=== PATIENT | male | born 1970 | race Caucasian/White ===

== ENCOUNTER → 2021-11-25 | Outpatient (CLI) | payer BC ==
--- NOTE | 2021-11-25 14:03 | XR ---
EXAMINATION TYPE: XR chest 2V DATE OF EXAM: 11/25/2021 COMPARISON: NONE HISTORY: Cough since July TECHNIQUE: Frontal and lateral views of the chest are obtained. FINDINGS: There is no focal air space opacity, pleural effusion, or pneumothorax seen. The cardiac silhouette size is within normal limits. Mild elevation of right hemidiaphragm is noted. The osseous structures are intact, there is multilevel spondylosis. IMPRESSION: No acute cardiopulmonary process.
== END | disposition home or self-care (01) ==
LOC: RADXRMAIN 10:38
PROVIDERS: ATTEND Family Medicine
DX: R05.3 Chronic cough (principal)
CPT/HCPCS: 71046

== ENCOUNTER 2023-03-29 16:45 | Observation (INO) | payer BC ==
--- NOTE | 2023-03-29 18:35 | ED ---
General Adult HPI - General Source: patient Mode of arrival: ambulatory Limitations: no limitations <Lisa Nicholas - Last Filed: 03/29/23 18:34> <Wu Oliva - Last Filed: 03/30/23 03:00> - General Chief complaint: Chest Pain Stated complaint: Heartburn - History of Present Illness Initial comments: 52-year-old male presents emergency department chief complaint of (TomfarzadLisa) 52-year-old male with history of hypertension presenting with chief complaint of chest pain. Pain has been on and off since Sunday. Pain is pressure-like sensation in the center of the chest, and is brought on with exertion. No palpitations, numbness, tingling, weakness. No radiation of pain down the arm or up the neck. No nausea or vomiting. No fever, chills, cough. (Wu Oliva) - Related Data Allergies Allergy/AdvReac Type Severity Reaction Status Date / Time No Known Allergies Allergy Verified 03/29/23 18:25 Review of Systems ROS Other: All systems not noted in ROS Statement are negative. <Lisa Nicholas - Last Filed: 03/29/23 18:34> ROS Other: All systems not noted in ROS Statement are negative. <Wu Oliva - Last Filed: 03/30/23 03:00> ROS Statement: Those systems with pertinent positive or pertinent negative responses have been documented in the HPI. Past Medical History Past Medical History: Asthma History of Any Multi-Drug Resistant Organisms: None Reported Additional Past Surgical History / Comment(s): vasectomy Past Psychological History: No Psychological Hx Reported Smoking Status: Never smoker Past Alcohol Use History: None Reported Past Drug Use History: None Reported <Lisa Nicholas - Last Filed: 03/29/23 18:34> General Exam Limitations: no limitations <Lisa Nicholas - Last Filed: 03/29/23 18:34> Limitations: no limitations General appearance: alert, in no apparent distress Head exam: Present: atraumatic, normocephalic, normal inspection Eye exam: Present: normal appearance, PERRL, EOMI. Absent: scleral icterus, conjunctival injection, periorbital swelling Neck exam: Present: normal inspection, full ROM Respiratory exam: Present: normal lung sounds bilaterally. Absent: respiratory distress, wheezes, rales, rhonchi, stridor Cardiovascular Exam: Present: regular rate, normal rhythm, normal heart sounds. Absent: systolic murmur, diastolic murmur, rubs, gallop, clicks Neurological exam: Present: alert, oriented X3, CN II-XII intact Psychiatric exam: Present: normal affect, normal mood Skin exam: Present: warm, dry, intact, normal color. Absent: rash <Wu Oliva - Last Filed: 03/30/23 03:00> Course Vital Signs 03/29/23 03/29/23 03/29/23 18:18 21:25 21:32 Temperature 98.5 F Pulse Rate 56 L 59 L Pulse Rate [ 57 L Editing Clerk ] Respiratory 20 18 Rate Blood Pressure 131/78 136/94 O2 Sat by Pulse 97 98 Oximetry 03/29/23 03/29/23 03/30/23 22:00 23:00 00:00 Temperature Pulse Rate 60 58 L 58 L Pulse Rate [ Editing Clerk ] Respiratory 18 18 18 Rate Blood Pressure 116/78 126/83 119/81 O2 Sat by Pulse Oximetry EKG Findings - EKG Comments: EKG Findings:: Sinus bradycardia ventricular rate 54. IL interval 169. QRS 93. QT 415. QTc 402. No ST deviation. T-wave flattening seen in leads 3 and aVF. <Wu Oliva - Last Filed: 03/30/23 03:00> Medical Decision Making - Lab Data Result diagrams: 03/29/23 18:21 03/29/23 18:21 <Wu Oliva - Last Filed: 03/30/23 03:00> - Medical Decision Making Was pt. sent in by a medical professional or institution (, PA, DRYING OVEN TENDER, urgent care, hospital, or long term...) When possible be specific @ -No Did you speak to anyone other than the patient for history (EMS, parent, family, police, friend...)? What history was obtained from this source @ -No Did you review nursing and triage notes (agree or disagree)? Why? @ -I reviewed and agree with nursing and triage notes Were old charts reviewed (outside hosp., previous admission, EMS record, old EKG, old radiological studies, urgent care reports/EKG's, long term records)? Report findings @ -No old charts were reviewed Differential Diagnosis (chest pain, altered mental status, abdominal pain women, abdominal pain men, vaginal bleeding, weakness, fever, dyspnea, syncope, headache, dizziness, GI bleed, back pain, seizure, CVA, palpatations, mental health, musculoskeletal)? @ -[facility] Differential Chest Pain: Stable Angina, Unstable Angina, STEMI, NSTEMI Aortic Dissection, Pneumothorax, Musculoskeletal, Esophageal Spasm GERD, Cholecystitis, Pancreatitis, Zoster This is not meant to be an all-inclusive list. EKG interpreted by me (3pts min.). @ -As above X-rays interpreted by me (1pt min.). @ -Chest X-ray shows no acute process CT interpreted by me (1pt min.). @ -None done U/S interpreted by me (1pt. min.). @ -None done What testing was considered but not performed or refused? (CT, X-rays, U/S, labs)? Why? @ -None What meds were considered but not given or refused? Why? @ -None Did you discuss the management of the patient with other professionals (professionals i.e. , PA, DRYING OVEN TENDER, lab, RT, psych nurse, social worker assistant, food taster, teacher, environmental technical officer, casework specialist)? Give summary @ -Spoke with [facility] hospitalist group provider on-call who accepted admission Was smoking cessation discussed for >3mins.? @ -No Was critical care preformed (if so, how long)? @ -No Were there social determinants of health that impacted care today? How? (Homelessness, low income, unemployed, alcoholism, drug addiction, transportation, low edu. Level, literacy, decrease access to med. care, fci, rehab)? @ -No Was there de-escalation of care discussed even if they declined (Discuss DNR or withdrawal of care, Hospice)? DNR status @ -No What co-morbidities impacted this encounter? (DM, HTN, Smoking, COPD, CAD, Cancer, CVA, ARF, Chemo, Hep., AIDS, mental health diagnosis, sleep apnea, morbid obesity)? @ -hypertension Was patient admitted / discharged? Hospital course, mention meds given and route, prescriptions, significant lab abnormalities, going to OR and other pertinent info. @ -52-year-old male presenting with chief complaint of intermittent chest pressure that worsens with exertion. No pain currently. History of hypertension. Physical examination is unremarkable. Negative workup including EKG and chest x-ray. Patient will be admitted for observation and evaluation by cardiology. Patient is agreeable with this plan. I discussed this case with my attending Dr. Hernandez Undiagnosed new problem with uncertain prognosis? @ -No Drug Therapy requiring intensive monitoring for toxicity (Heparin, Nitro, Insulin, Cardizem)? @ -No Were any procedures done? @ -No Diagnosis/symptom? @ -Chest pain Acute, or Chronic, or Acute on Chronic? @ -Acute Uncomplicated (without systemic symptoms) or Complicated (systemic symptoms)? @ -Complicated Side effects of treatment? @ -No Exacerbation, Progression, or Severe Exacerbation? @ -No Poses a threat to life or bodily function? How? (Chest pain, [place], VA, pneumonia, PE, COPD, DKA, ARF, appy, cholecystitis, CVA, Diverticulitis, Homicidal, Suicidal, threat to staff... and all critical care pts) @ -yes (Wu Oliva) - Lab Data Lab Results 03/29/23 03/29/23 03/29/23 Range/Units 18:21 18:21 18:21 WBC 9.7 (3.8-10.6) k/uL RBC 5.05 (4.30-5.90) m/uL Hgb 16.1 (13.0-17.5) gm/dL Hct 46.4 (39.0-53.0) % MCV 92.0 (80.0-100.0) fL MCH 31.8 (25.0-35.0) pg MCHC 34.6 (31.0-37.0) g/dL RDW 13.2 (11.5-15.5) % Plt Count 193 (150-450) k/uL MPV 7.9 Neutrophils % 62 % Lymphocytes % 25 % Monocytes % 7 % Eosinophils % 3 % Basophils % 0 % Neutrophils # 6.0 (1.3-7.7) k/uL Lymphocytes # 2.5 (1.0-4.8) k/uL Monocytes # 0.7 (0-1.0) k/uL Eosinophils # 0.3 (0-0.7) k/uL Basophils # 0.0 (0-0.2) k/uL PT 10.0 (9.0-12.0) sec INR 0.9 (<1.2) APTT 27.4 (22.0-30.0) sec Sodium 139 (137-145) mmol/L Potassium 4.2 (3.5-5.1) mmol/L Chloride 103 (98-107) mmol/L Carbon Dioxide 26 (22-30) mmol/L Anion Gap 10 mmol/L BUN 19 (9-20) mg/dL Creatinine 0.88 (0.66-1.25) mg/dL Est GFR (CKD-EPI)AfAm >90 (>60 ml/min/1.73 sqM) Est GFR (CKD-EPI)NonAf >90 (>60 ml/min/1.73 sqM) Glucose 85 (74-99) mg/dL Calcium 9.8 (8.4-10.2) mg/dL Magnesium 2.1 (1.6-2.3) mg/dL Total Bilirubin 0.9 (0.2-1.3) mg/dL AST 27 (17-59) U/L ALT 31 (4-49) U/L Alkaline Phosphatase 74 (38-126) U/L Troponin I (0.000-0.034) ng/mL Total Protein 7.8 (6.3-8.2) g/dL Albumin 4.6 (3.5-5.0) g/dL 03/29/23 Range/Units 18:21 WBC (3.8-10.6) k/uL RBC (4.30-5.90) m/uL Hgb (13.0-17.5) gm/dL Hct (39.0-53.0) % MCV (80.0-100.0) fL MCH (25.0-35.0) pg MCHC (31.0-37.0) g/dL RDW (11.5-15.5) % Plt Count (150-450) k/uL MPV Neutrophils % % Lymphocytes % % Monocytes % % Eosinophils % % Basophils % % Neutrophils # (1.3-7.7) k/uL Lymphocytes # (1.0-4.8) k/uL Monocytes # (0-1.0) k/uL Eosinophils # (0-0.7) k/uL Basophils # (0-0.2) k/uL PT (9.0-12.0) sec INR (<1.2) APTT (22.0-30.0) sec Sodium (137-145) mmol/L Potassium (3.5-5.1) mmol/L Chloride (98-107) mmol/L Carbon Dioxide (22-30) mmol/L Anion Gap mmol/L BUN (9-20) mg/dL Creatinine (0.66-1.25) mg/dL Est GFR (CKD-EPI)AfAm (>60 ml/min/1.73 sqM) Est GFR (CKD-EPI)NonAf (>60 ml/min/1.73 sqM) Glucose (74-99) mg/dL Calcium (8.4-10.2) mg/dL Magnesium (1.6-2.3) mg/dL Total Bilirubin (0.2-1.3) mg/dL AST (17-59) U/L ALT (4-49) U/L Alkaline Phosphatase (38-126) U/L Troponin I <0.012 (0.000-0.034) ng/mL Total Protein (6.3-8.2) g/dL Albumin (3.5-5.0) g/dL Disposition <Lisa Nicholas - Last Filed: 03/29/23 18:34> Time of Disposition: 22:44 <Wu Oliva - Last Filed: 03/30/23 03:00> Clinical Impression: Chest pain Disposition: ADMITTED IP TO THIS [facility] Condition: Fair
[2023-03-29 18:56] LABS: Basophils % (A) 0 %; Eosinophils # (A) 0.3 k/uL (0-0.7); Eosinophils % (A) 3 %; HCT 46.4 % (39.0-53.0); HGB 16.1 gm/dL (13.0-17.5); Lymphocytes # (A) 2.5 k/uL (1.0-4.8); Lymphocytes % (A) 25 %; MCH 31.8 pg (25.0-35.0); MCHC 34.6 g/dL (31.0-37.0); Mean Platelet Volume 7.9; Monocytes # (A) 0.7 k/uL (0-1.0); Monocytes % (A) 7 %; Neutrophils % (A) 62 %; Platelet Count 193 k/uL (150-450); RBC 5.05 m/uL (4.30-5.90); RDW 13.2 % (11.5-15.5); WBC 9.7 k/uL (3.8-10.6)
[2023-03-29 19:13] LABS: INR 0.9 (<1.2); Partial Thromboplastin Time 27.4 sec (22.0-30.0)
[2023-03-29 19:14] LABS: ALT 31 U/L (4-49); AST 27 U/L (17-59); African American GFR (CKD) >90 (>60 ml/min/1.73 sqM); Albumin 4.6 g/dL (3.5-5.0); Alkaline Phosphatase 74 U/L (38-126); Anion Gap 10 mmol/L; Blood Urea Nitrogen 19 mg/dL (9-20); Calcium 9.8 mg/dL (8.4-10.2); Carbon Dioxide 26 mmol/L (22-30); Chloride 103 mmol/L (98-107); Glucose 85 mg/dL (74-99); Magnesium 2.1 mg/dL (1.6-2.3); Non-African American GFR(CKD) >90 (>60 ml/min/1.73 sqM); Potassium 4.2 mmol/L (3.5-5.1); Sodium 139 mmol/L (137-145); Total Bilirubin 0.9 mg/dL (0.2-1.3); Total Protein 7.8 g/dL (6.3-8.2)
[2023-03-29] MEDS ORDERED: ASPIRIN 81 MG PO STA (21:20)
--- NOTE | 2023-03-29 22:01 | XR ---
EXAMINATION TYPE: XR chest 2V DATE OF EXAM: 03/29/2023 9:49 PM COMPARISON: Chest x-ray 11/25/2021 TECHNIQUE: XR chest 2V . CLINICAL INDICATION:Male, 52 years old with history of chest pain; FINDINGS: Lungs/Pleura: There is no evidence of pleural effusion, focal consolidation, or pneumothorax. Pulmonary vascularity: Unremarkable. Heart/mediastinum: Cardiomediastinal silhouette is unremarkable. Musculoskeletal: No acute osseous pathology. IMPRESSION: No acute cardiopulmonary disease/process.
[2023-03-30] MEDS ORDERED: NALOXONE 0.4 MG/ML 1 ML VIAL IV PRN (00:24)
--- NOTE | 2023-03-30 11:47 | CA ---
Stress Echo Report Trey Rivear Age: 52 Gender: M : 1970 Exam Date: 03/30/2023 10:32 Exam Location: [facility] Ht (in): 71 Wt (lb): 259 Ordering Physician: Gissell Gusman Referring Physician: [id number] Hide Worker: OG Technologist Procedure CPT: Indication: CP ICD-9 Codes: Rhythm: Patient History: Chest pain and shortness of breath Cardiac Medications: Medications in past 24 hours: Contrast: Lumason Stress Results Protocol: Amilcar Total dose(mL): 5 Exercise Duration (min:sec): [address] Depression (mm): Angina Score: Darling Score: METS: 12.1 Resting HR: 62 Resting BP: 103 / 67 Peak HR: 148 Peak BP: 179 / 84 Max Predicted HR: 169 88 % Max Predicted HR Target HR: 144 Double Product: 22366 Stress Summary: BP Response: Reason for Termination: Reached target heart rate or work-load Cardiac Symptoms: Test terminated after reaching target heart rate (85% max predicted) ECG Analysis Resting ECG: Stress ECG: Arrhythmia: Echo Analysis Resting Echo: Peak Echo Analysis: MEASUREMENTS (Male/Female) Normal Values CONCLUSIONS Excellent exercise capacity and a Amilcar protocol Normal heart rate and blood pressure response Very occasional PVCs Procedures for ischemia Excellent augmentation of overall LV contractility without development of any wall motion abnormalities At recovery, regional and global LV systolic function remained normal Impression Normal stress echo Dr. Alvarez Sanchez MD (Electronically Signed) Final Date: 30 March 2023 11:46
--- NOTE | 2023-03-30 12:21 | P.CRDCN ---
History of Present Illness History of present illness: HISTORY OF PRESENT ILLNESS: This is a 52-year-old male with a past medical history significant for hypertension. Patient follows in the office with Dr. Altman but has not been seen since July 2021. We have been asked to see the patient in consultation for chest pain. Patient examined at the bedside. Patient states over the weekend he began having chest pain at night. He states the pain lasted all night and then gradually went away the next morning. He states he took Tums at that time but it didn't help. He reports yesterday at work he began having chest pain again. He repeat ports having radiation to the jaw at that time. He reports taking Tums again with no relief. At the time of examination, he denies chest pain or pressure. * EKG reveals sinus bradycardia with no signs of acute ischemia * Chest xray negative for acute process * Laboratory data: W BC 9.7. Hemoglobin 16.1. Platelet count 193. Sodium 139. Potassium 4.2. BUN 19. Creatinine 0.88. Troponin negative 3 * Current home cardiac medications include amlodipine 10 mg daily and Nebivolol 5mg at HS REVIEW OF SYSTEMS: At the time of my exam: CONSTITUTIONAL: Denies fever or chills. HEENT: Denies blurred vision, vision changes, or eye pain. Denies hemoptysis CARDIOVASCULAR: Denies chest pain. Denies orthopnea. Denies PND. Denies palpitations RESPIRATORY: Denies shortness of breath. GASTROINTESTINAL: Denies abdominal pain. Denies nausea or vomiting. HEMATOLOGIC: Denies bleeding disorders. GENITOURINARY: Denies any blood in urine. SKIN: Denies pruitis. Denies rash. PHYSICAL EXAM: VITAL SIGNS: Reviewed. GENERAL: Well-developed in no acute distress. HEENT: Head is normocephalic. Pupils are equal, round. Sclerae anicteric. Mucous membranes of the mouth are moist. Neck supple. No JVD or thyromegaly LUNGS: Respirations even and unlabored. Lungs essentially clear to auscultation bilaterally. HEART: Regular rate and rhythm. S1 and S2 heard. ABDOMEN: Soft. Nondistended. Nontender. EXTREMITIES: Normal range of motion. No clubbing or cyanosis. Peripheral pulses intact. No lower extremity edema NEUROLOGIC: Awake and alert. Oriented x 3. ASSESSMENT: Chest pain Hypertension Morbid obesity: BMI 36.1 PLAN: An acute coronary event has been ruled out Patient underwent stress echocardiogram this morning which was negative for ischemia Patient may be discharged home today from a cardiac standpoint We will sign off. Please reconsult if needed. Nurse practitioner note has been reviewed by physician. Signing provider agrees with the documented findings, assessment, and plan of care. Past Medical History Past Medical History: Asthma History of Any Multi-Drug Resistant Organisms: None Reported Additional Past Surgical History / Comment(s): vasectomy Past Psychological History: No Psychological Hx Reported Smoking Status: Never smoker Past Alcohol Use History: None Reported Past Drug Use History: None Reported Medications and Allergies Home Medications Medication Instructions Recorded Confirmed Type Aspirin EC [Ecotrin Low Dose] 81 mg PO DAILY 03/30/23 03/30/23 History Nebivolol HCl 5 mg PO HS 03/30/23 03/30/23 History amLODIPine 10 mg PO DAILY 03/30/23 03/30/23 History Allergies Allergy/AdvReac Type Severity Reaction Status Date / Time No Known Allergies Allergy Verified 03/30/23 08:54 Physical Exam Vitals: Vital Signs Temp Pulse Pulse Resp BP Pulse Ox 03/30/23 08:35 61 18 107/79 98 03/30/23 05:00 52 L 18 126/82 97 03/30/23 04:00 53 L 18 102/61 03/30/23 03:00 52 L 18 110/69 97 03/30/23 00:00 58 L 18 119/81 03/29/23 23:00 58 L 18 126/83 03/29/23 22:00 60 18 116/78 03/29/23 21:32 57 L 03/29/23 21:25 59 L 18 136/94 98 03/29/23 18:18 98.5 F 56 L 20 131/78 97 Intake and Output 03/29/23 03/30/23 03/30/23 22:59 06:59 14:59 Other: Weight 117.48 kg Results 03/29/23 18:21 03/29/23 18:21 Cardiac Enzymes 03/29/23 03/29/23 03/30/23 Range/Units 18:21 18:21 04:30 AST 27 (17-59) U/L Troponin I <0.012 <0.012 (0.000-0.034) ng/mL 03/30/23 Range/Units 06:20 AST (17-59) U/L Troponin I <0.012 (0.000-0.034) ng/mL Coagulation 03/29/23 Range/Units 18:21 PT 10.0 (9.0-12.0) sec APTT 27.4 (22.0-30.0) sec CBC 03/29/23 Range/Units 18:21 WBC 9.7 (3.8-10.6) k/uL RBC 5.05 (4.30-5.90) m/uL Hgb 16.1 (13.0-17.5) gm/dL Hct 46.4 (39.0-53.0) % Plt Count 193 (150-450) k/uL Comprehensive Metabolic Panel 03/29/23 Range/Units 18:21 Sodium 139 (137-145) mmol/L Potassium 4.2 (3.5-5.1) mmol/L Chloride 103 (98-107) mmol/L Carbon Dioxide 26 (22-30) mmol/L BUN 19 (9-20) mg/dL Creatinine 0.88 (0.66-1.25) mg/dL Glucose 85 (74-99) mg/dL Calcium 9.8 (8.4-10.2) mg/dL AST 27 (17-59) U/L ALT 31 (4-49) U/L Alkaline Phosphatase 74 (38-126) U/L Total Protein 7.8 (6.3-8.2) g/dL Albumin 4.6 (3.5-5.0) g/dL Current Medications Generic Name Dose Route Start Last Admin Trade Name Kevin PRN Reason Stop Dose Admin Naloxone HCl 0.2 mg 03/30/23 00:24 Naloxone 0.4 Mg/Ml 1 Ml Vial IV Q2M PRN Opioid Reversal Intake and Output 03/29/23 03/30/23 03/30/23 22:59 06:59 14:59 Other: Weight 117.48 kg 03/29/23 18:21 03/29/23 18:21
[2023-03-30 13:05] VITALS: BP 134/80; TEMP 97.9
[2023-03-30 13:21] VITALS: PULSE 74; RESP 16
[2023-03-30 16:30] LABS: Chol/HDL Ratio 4.36 Ratio; LDL Cholesterol,Calculated 140.1 mg/dL (0.0-131.0)
--- NOTE | 2023-03-31 12:13 | P.HPIM ---
History of Present Illness H&P Date: 03/30/23 Chief Complaint: Chest 52-year-old male with a past medical history significant for hypertension. Patient states over the weekend he began having chest pain at night. He states the pain lasted all night and then gradually went away the next morning. He states he took Tums at that time but it didn't help. He reports yesterday at work he began having chest pain again. He repeat ports having radiation to the jaw at that time. He reports taking Tums again with no relief. At the time of examination, he denies chest pain or pressure. EKG reveals sinus bradycardia with no signs of acute ischemia Chest xray negative for acute process Laboratory data: W BC 9.7. Hemoglobin 16.1. Platelet count 193. Sodium 139. Potassium 4.2. BUN 19. Creatinine 0.88. Troponin negative 3 Review of Systems REVIEW OF SYSTEMS: CONSTITUTIONAL: No fever, no malaise, no fatigue. HEENT: No recent visual problems or hearing problems. Denied any sore throat. CARDIOVASCULAR: No chest pain, orthopnea, PND, no palpitations, no syncope. PULMONARY: No shortness of breath, no cough, no hemoptysis. GASTROINTESTINAL: No diarrhea, no nausea, no vomiting, no abdominal pain. NEUROLOGICAL: No headaches, no weakness, no numbness. HEMATOLOGICAL: Denies any bleeding or petechiae. GENITOURINARY: Denies any burning micturition, frequency, or urgency. MUSCULOSKELETAL/RHEUMATOLOGICAL: Denies any joint pain, swelling, or any muscle pain. ENDOCRINE: Denies any polyuria or polydipsia. The rest of the 14-point review of systems is negative. Past Medical History Past Medical History: Asthma History of Any Multi-Drug Resistant Organisms: None Reported Additional Past Surgical History / Comment(s): vasectomy Past Psychological History: No Psychological Hx Reported Smoking Status: Never smoker Past Alcohol Use History: None Reported Past Drug Use History: None Reported Medications and Allergies Home Medications Medication Instructions Recorded Confirmed Type Aspirin EC [Ecotrin Low Dose] 81 mg PO DAILY 03/30/23 03/30/23 History Nebivolol HCl 5 mg PO HS 03/30/23 03/30/23 History amLODIPine 10 mg PO DAILY 03/30/23 03/30/23 History Allergies Allergy/AdvReac Type Severity Reaction Status Date / Time No Known Allergies Allergy Verified 03/30/23 08:54 Physical Exam Vitals: Vital Signs Temp Pulse Pulse Resp BP Pulse Ox 03/30/23 13:02 97.9 F 74 16 134/80 0 L 03/30/23 11:25 77 18 106/64 95 03/30/23 08:35 61 18 107/79 98 03/30/23 05:00 52 L 18 126/82 97 03/30/23 04:00 53 L 18 102/61 03/30/23 03:00 52 L 18 110/69 97 03/30/23 00:00 58 L 18 119/81 03/29/23 23:00 58 L 18 126/83 03/29/23 22:00 60 18 116/78 03/29/23 21:32 57 L 03/29/23 21:25 59 L 18 136/94 98 03/29/23 18:18 98.5 F 56 L 20 131/78 97 Intake and Output 03/29/23 03/30/23 03/30/23 22:59 06:59 14:59 Other: Weight 117.48 kg PHYSICAL EXAMINATION: GENERAL: The patient is alert and oriented x3, not in any acute distress. Well developed, well nourished. HEENT: Pupils are round and equally reacting to light. EOMI. No scleral icterus. No conjunctival pallor. Normocephalic, atraumatic. No pharyngeal erythema. No thyromegaly. CARDIOVASCULAR: S1 and S2 present. No murmurs, rubs, or gallops. PULMONARY: Chest is clear to auscultation, no wheezing or crackles. ABDOMEN: Soft, nontender, nondistended, normoactive bowel sounds. No palpable organomegaly. MUSCULOSKELETAL: No joint swelling or deformity. EXTREMITIES: No cyanosis, clubbing, or pedal edema. NEUROLOGICAL: Gross neurological examination did not reveal any focal deficits. SKIN: No rashes. Results CBC & Chem 7: 03/29/23 18:21 03/29/23 18:21 Assessment and Plan Assessment: 1. Chest pain rule out acute coronary syndrome - Monitor EKG and trend troponin; cardiology is consulted 2. Hypertension; stable on home regimen 3. Asthma; not in exacerbation 4. Obesity; BMI of 36.1; counseling done DVT prophylaxis; SCDs CODE STATUS; full code
--- NOTE | 2023-03-31 12:15 | P.DS ---
Providers Date of admission: 03/30/23 00:32 Expected date of discharge: 03/30/23 Attending physician: Jennifer Quinones MD Primary care physician: Jack Hernandez [facility] Course: 52-year-old male with a past medical history significant for hypertension. Patient follows in the office with Dr. Altman but has not been seen since July 2021. We have been asked to see the patient in consultation for chest pain. Patient examined at the bedside. Patient states over the weekend he began having chest pain at night. He states the pain lasted all night and then gradually went away the next morning. He states he took Tums at that time but it didn't help. He reports yesterday at work he began having chest pain again. He repeat ports having radiation to the jaw at that time. He reports taking Tums again with no relief. At the time of examination, he denies chest pain or pressure. * EKG reveals sinus bradycardia with no signs of acute ischemia * Chest xray negative for acute process * Laboratory data: W BC 9.7. Hemoglobin 16.1. Platelet count 193. Sodium 139. Potassium 4.2. BUN 19. Creatinine 0.88. Troponin negative 3 * Current home cardiac medications include amlodipine 10 mg daily and Nebivolol 5mg at HS ASSESSMENT: Chest pain Hypertension Morbid obesity: BMI 36.1 PLAN: An acute coronary event has been ruled out Patient underwent stress echocardiogram this morning which was negative for ischemia Patient may be discharged home today from a cardiac standpoint Patient Condition at Discharge: Fair Plan - Discharge Summary New Discharge Prescriptions: Continue Aspirin EC [Ecotrin Low Dose] 81 mg PO DAILY Nebivolol HCl 5 mg PO HS amLODIPine 10 mg PO DAILY Discharge Medication List Aspirin EC [Ecotrin Low Dose] 81 mg PO DAILY 03/30/23 [History] Nebivolol HCl 5 mg PO HS 03/30/23 [History] amLODIPine 10 mg PO DAILY 03/30/23 [History] Follow up Appointment(s)/Referral(s): Jack Hernandez DO [Primary Care Provider] - 1-2 days Patient Instructions/Handouts: Chest Pain (DC) Discharge Disposition: HOME SELF-CARE
== END 2023-03-30 13:54 | disposition home or self-care (01) ==
LOC: EC 16:45 → 6NMEDSUR 03-30 00:32 → INTOOBSV 03-30 00:32 → 6NMEDSUR 03-30 06:51 → UNDODISIN 03-30 13:54
PROVIDERS: ADMIT Internal Medicine; ATTEND Internal Medicine
DX: R07.89 Other chest pain (principal); I10 Essential (primary) hypertension; J45.909 Unspecified asthma, uncomplicated; E66.9 Obesity, unspecified; R00.1 Bradycardia, unspecified; Z98.52 Vasectomy status; Z68.36 Body mass index [BMI] 36.0-36.9, adult; Z79.82 Long term (current) use of aspirin; Z79.899 Other long term (current) drug therapy
CPT/HCPCS: 99285; 36415; 93005 ×2; 93351; 80061; 80053; 83735; 84484 ×2; 85025; 85610; 85730; 83036; 71046; G0378; Q9950